=== PATIENT | male | born 1955 | race Caucasian/White ===

== ENCOUNTER 2017-10-26 22:04 | Emergency (ER) | payer BC ==
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
--- NOTE | 2017-10-29 07:49 | CT SCAN REPORT ---
DATE: 10/26/2017. EXAM: CT OF THE LOWER EXTREMITIES WITHOUT CONTRAST. HISTORY: Left foot injury. TECHNIQUE: Sequential axial images were obtained through the lower extremities without intravenous contrast administration. Sagittal and coronal three- dimensional MIP images were performed on an independent workstation. FINDINGS: There are nondisplaced fracture deformities of the distal first phalanx and second proximal phalanx. There is subcutaneous soft tissue swelling and edema over the lateral malleolar region. No additional fracture deformities are appreciated. IMPRESSION: ACUTE FRACTURE DEFORMITIES OF THE DISTAL FIRST PHALANX AND THE SECOND PROXIMAL PHALANX. JOB NUMBER: [id number] [facility]
== END 2017-10-27 00:30 | disposition home or self-care (01) ==
LOC: ER 22:04
DX: S92.425A Nondisplaced fracture of distal phalanx of left great toe, initial encounter for closed fracture (principal); S92.515A Nondisplaced fracture of proximal phalanx of left lesser toe(s), initial encounter for closed fracture; I10 Essential (primary) hypertension; I25.2 Old myocardial infarction; V86.56XA Driver of dirt bike or motor/cross bike injured in nontraffic accident, initial encounter; Y92.410 Unspecified street and highway as the place of occurrence of the external cause
CPT/HCPCS: 99283